=== PATIENT | female | born 2000 | race African-American/Black ===

== ENCOUNTER 2025-05-31 09:05 | Outpatient (CLI) | payer MEDICAID | END 2025-05-31 09:06 | disposition home or self-care (01) | LOC: ULT 09:05 | PROVIDERS: ATTEND Family Medicine | DX: R32 Unspecified urinary incontinence (principal) | CPT/HCPCS: 76770 ==

== ENCOUNTER 2025-06-15 11:06 | Outpatient (CLI) | payer MEDICAID, OTHER | END 2025-06-15 11:07 | disposition home or self-care (01) | LOC: BICRAD 11:06 | PROVIDERS: ATTEND Family Medicine | DX: K59.09 Other constipation (principal) | CPT/HCPCS: 74019 ==